=== PATIENT | female | born 1960 | race Caucasian/White ===

== ENCOUNTER 2016-11-15 17:54 | Emergency (ER) ==
[2016-11-15] MEDS ORDERED: DECADRON 4 MG/ML SDV IM STA (17:57)
[2016-11-15 18:03] VITALS: BP 139/82; TEMP 98.6; BMI 50.6
--- NOTE | 2016-11-15 18:03 | ED.PDOC ---
General ED Provider: Dr. TIFFANI NAVARRO Chief Complaint: Cough Stated Complaint: cough Time Seen by Physician: 18:00 Mode of Arrival: Walk-In Information Source: Patient Exam Limitations: No limitations [facility] T[facility] Documentation Reviewed and Agree: Yes Respiratory Complaint Exam - Respiratory Complaint/Exam Symptoms Are: Still present Timing: Intermittent Initial Severity: Moderate Current Severity: Moderate Location: Throat Character: Reports: Non-productive cough Aggravating: Reports: None Alleviating: Reports: None Associated Signs and Symptoms: Denies: Rapid breathing, Dyspnea, Fever, Chills, Chest pain, Pleuritic chest pain, Wheezing, Hemoptysis, Dizziness, Calf pain, Calf swelling, Edema, URI, Nasal congestion, Hoarseness, Sinus discomfort, Vomiting, Sore throat, Weight loss, Decreased oral intake, Increased thirst, Increased appetite, Increased urination Related History: Reports: Similar episode History of Healthcare-Acquired Pneumonia: No Related Surgical History: Reports: None Pulmonary Embolism Risk Factors: None Recent Stress Test: No Recent Echo/LV Function: No Current Antibiotic Use: No Current Asthma Medication Use: No Respiratory Distress: None Inadequate Respiratory Effort: No Dysphagia Present: No Stridor Present: No JVD Present: No Accessory Muscle Use: No Retractions: Not Present Diminished Breath Sounds: No Sinus Tenderness: None Grunting Respirations: No Kussmaul Respirations: No Differential Diagnoses: Pneumonia, Bronchitis Review of Systems - Review Of Systems Constitutional: Reports: No symptoms Eyes: Reports: No symptoms Ears, Nose, Mouth, Throat: Reports: No symptoms Respiratory: Reports: Cough Cardiac: Reports: No symptoms GI: Reports: No symptoms : Reports: No symptoms Musculoskeletal: Reports: No symptoms Skin: Reports: No symptoms Neurological: Reports: No symptoms Endocrine: Reports: No symptoms Hematologic/Lymphatic: Reports: No symptoms All Other Systems: Reviewed and Negative Past Medical History - Past Medical History Previously Healthy: No Endocrine: Reports: Hypothyroid Cardiovascular: Reports: Hypertension Respiratory: Reports: None Hematological: Reports: None Gastrointestinal: Reports: Diverticulitis Genitourinary: Reports: None Neuro/Psych: Reports: Depression Musculoskeletal: Reports: Arthritis Cancer: Reports: None Last Menstrual Period: hysterectomy - Surgical History General Surgical History: Reports: Unknown - Family History Family History: Reports: Unknown - Social History Smoking Status: Former smoker Hx Substance Use: No Alcohol Screening: None Physical Exam - Physical Exam Appearance: Well-appearing, No pain distress, Well-nourished Eyes: GABBI, EOMI, Conjunctiva clear ENT: Ears normal, Nose normal, Oropharynx normal Respiratory: Airway patent, Breath sounds clear, Breath sounds equal, Respirations nonlabored Cardiovascular: RRR, Pulses normal, No rub, No murmur GI/: Soft, Nontender, No masses, Bowel sounds normal, No Organomegaly Musculoskeletal: Normal strength, ROM intact, No edema, No calf tenderness Skin: Warm, Dry, Normal color Neurological: Sensation intact, Motor intact, Reflexes intact, Cranial nerves intact, Alert, Oriented Psychiatric: Affect appropriate, Mood appropriate Critical Care Note - Critical Care Note Total Time (mins): 0 Course - Course Orders, Labs, Meds: Orders Category Date Time Status Dexamethasone 4 mg/ml Inj [Decadron 4 mg/ml Sdv] MEDS 11/15/16 17:57 Stat 8 mg IM ONCE STA CHEST, 2 VIEWS PA & LAT Stat RADS 11/15/16 17:58 Ordered Medications Discontinued Medications Generic Name Dose Route Start Last Admin Trade Name Jasmin PRN Reason Stop Dose Admin Dexamethasone Sodium Phosphate 8 mg 11/15/16 17:57 Decadron 4 Mg/Ml Sdv IM 11/15/16 17:58 ONCE STA Vital Signs: Temp Pulse Resp BP Pulse Ox 11/15/16 17:55 98.6 F 58 L 20 139/82 94 L Departure - Departure Time of Disposition: 19:00 Disposition: HOME SELF-CARE Discharge Problem: Cough, Bronchitis Instructions: Acute Bronchitis (ED) Condition: Good Pt referred to PMD for follow-up: No Additional Instructions: Please call your Family Physician as soon as possible to schedule a follow-up appointment. Allergies/Adverse Reactions: Allergies amoxicillin [Amoxicillin] Adverse Reaction (Verified 11/15/16 18:03) meperidine HCl [From Demerol] Adverse Reaction (Verified 11/15/16 18:03) Home Medications: Ambulatory Orders Bupropion HCl [Wellbutrin] 75 mg PO BID 10/22/13 Hydrochlorothiazide 12.5 mg PO DAILY 10/22/13 Losartan Potassium 100 mg PO DAILY 10/22/13 Atenolol [Tenormin] 50 mg PO DAILY 04/23/14 Levothyroxine Sodium 175 mcg PO DAILY #30 tab-cap 01/25/16 Rosuvastatin Calcium [Crestor] 10 mg PO BEDTIME tab-cap 11/18/15 Glucosamine Sulfate 2Kcl [Glucosamine] 1,000 mg PO BEDTIME #30 tab-cap 01/14/16 Hydrocodone/Acetaminophen [Hydrocodon-Acetaminoph 7.5-325] 1 each PO QID PRN 09/09 Metronidazole [Flagyl] 500 mg PO TID #18 tablet 02/06/16 Moxifloxacin HCl [Avelox] 400 mg PO DAILY #6 tablet 02/06/16 Disposition Discussed With: Patient
--- NOTE | 2016-11-15 23:44 | DI ---
EXAM: Chest, two views, 11/15/2016 HISTORY: Cough COMPARISON: 08/28/2016 FINDINGS / IMPRESSION: Cardiomediastinal contours appear stable. Atherosclerotic vascular disease of the aorta No focal pulmonary consolidation, effusion or pneumothorax. No acute cardiopulmonary process.
== END 2016-11-15 19:15 | disposition home or self-care (01) ==
LOC: ED 17:54
DX: J20.9 Acute bronchitis, unspecified (principal); Z79.899 Other long term (current) drug therapy
CPT/HCPCS: 96372; 99283

== ENCOUNTER 2016-11-23 15:57 | Outpatient (CLI) | payer OTHER ==
--- NOTE | 2016-11-23 16:55 | CT ---
Exam: CT thorax without contrast. Clinical indication: Cough. TECHNIQUE: Axial unenhanced CT images of the thorax were obtained followed by coronal and sagittal reformats. Comparison is made to the prior study dated 10/22/2013. Findings: There is underlying centrilobular emphysema. There is a couple of tiny nodules within the anterolateral aspect of the right upper lobe which are unchanged from September 2013 and invariably benign. There are no worrisome pulmonary parenchymal le sions. There is no pleural abnormality. There are no enlarged axillary, hilar or mediastinal lymph nodes, by size criteria. There are coronary artery calcifications. There is been prior gastric surgery. There also appears to be an other partial right nephrectomy or a focal scarring within the right kidney. The remainder the visualized portions of the upper abdome n are unremarkable. The visualized bony structures are unremarkable. Impression: 1. Underlying centrilobular emphysema. 2. No worrisome pulmonary parenchymal lesions. 3. Coronary artery calcifications. 4. Focal area of scarring within the mid-right kidney which could be from prior surgery or from yudelka or insult such as infection.
== END 2016-11-23 15:58 | disposition home or self-care (01) ==
LOC: RAD 15:57
PROVIDERS: ATTEND General Practice
DX: R05 Cough (principal)

== ENCOUNTER 2017-01-11 14:51 | Outpatient (CLI) ==
--- NOTE | 2017-01-11 15:19 | DI ---
EXAM: Three views of the left foot HISTORY: Left foot pain. COMPARISON: None FINDINGS: There is no lytic or blastic lesion. There is no cortical irregularity or displaced fract ure. There is mild flattening of the plantar arch with degenerative change in the midfoot and osteo phyte formation. Soft tissues are unremarkable. IMPRESSION: 1. No displaced fracture or dislocation of the left foot. 2. Degenerative change in the midfoot with mild flattening of the plantar arch.
[2017-01-11 16:45] LABS: ERYTHROCYTE SEDIMENTATION RATE 45 mm/hr (0-20); ESR INTERNAL QC INTERNAL QC VALID
== END 2017-01-11 14:52 | disposition home or self-care (01) ==
LOC: RAD 14:51
PROVIDERS: ATTEND General Practice
DX: M79.672 Pain in left foot (principal)
CPT/HCPCS: 36415; 84550; 85651

== ENCOUNTER 2017-02-23 08:19 | Outpatient (CLI) ==
[2017-02-23 13:26] LABS: BILIRUBIN,URINE Negative (NEGATIVE); KETONES,URINE Negative (NEGATIVE); LEUKOCYTE ESTERASE ,URINE Negative (NEGATIVE); NITRITE,URINE Negative (NEGATIVE); PH,URINE 5.5 (5-9); PROTEIN,URINE Negative (NEGATIVE); URINE, BLOOD Negative (NEGATIVE)
[2017-02-23 13:27] LABS: BASOPHILS % (AUTO) 0.5 % (0.0-3.0); EOSINOPHILS # (AUTO) 0.1 K/ul (0.0-0.7); EOSINOPHILS % (AUTO) 1.4 % (0.0-7.0); HEMATOCRIT 36.4 % (37.0-47.0); HEMOGLOBIN 11.8 g/dl (12.0-16.0); IMMATURE GRANULOCYTE % (AUTO) 0.3 % (0.0-5.0); LYMPHOCYTES % (AUTO) 31.7 (10.0-50.0); MEAN CORPUSCULAR HEMOGLOBIN 29.6 pg (27.0-31.0); MEAN CORPUSCULAR HGB CONC 32.4 (31.8-35.4); MEAN CORPUSCULAR VOLUME 91.2 fl (81.0-99.0); MONOCYTES # (AUTO) 0.4 K/uL (0.4-2.0); NEUTROPHILS # (AUTO) 3.7 K/ul (2.0-6.9); NEUTROPHILS % (AUTO) 59.1; PLATELET COUNT 230 10^3/uL (140-440); RED BLOOD COUNT 3.99 10^6/ul (4.20-5.40); WHITE BLOOD COUNT 6.25 K/ul (4.6-10.2)
[2017-02-23 13:43] LABS: ADD URINE MICROSCOPIC NO
[2017-02-23 14:27] LABS: ALBUMIN 3.5 g/dL (3.4-5.0); ALBUMIN/GLOBULIN RATIO 1.17; ANION GAP 12.5; BILIRUBIN,TOTAL 0.4 mg/dL (0.00-1.20); BUN/CREATININE RATIO 18.75; CALCIUM 9.7 mg/dL (8.2-10.2); CHOL/HDL RATIO 4.7 (4.5-5.5); CREATININE 0.8 mg/dL (0.60-1.30); POTASSIUM 3.5 mmol/L (3.5-5.10); TOTAL PROTEIN 6.5 g/dL (6.4-8.2)
== END 2017-02-23 08:20 | disposition home or self-care (01) ==
LOC: LAB 08:19
PROVIDERS: ATTEND General Practice
DX: E03.9 Hypothyroidism, unspecified (principal); F32.9 Major depressive disorder, single episode, unspecified; I25.10 Atherosclerotic heart disease of native coronary artery without angina pectoris; K57.92 Diverticulitis of intestine, part unspecified, without perforation or abscess without bleeding; Z79.899 Other long term (current) drug therapy
CPT/HCPCS: 36415; 80053; 80061; 81001; 84443; 85025

== ENCOUNTER 2017-04-09 11:14 | Outpatient (CLI) | payer OTHER ==
[2017-04-09 11:51] LABS: ALBUMIN 3.8 g/dL (3.4-5.0); ALBUMIN/GLOBULIN RATIO 1.23; ANION GAP 11.8; BILIRUBIN,TOTAL 0.55 mg/dL (0.00-1.20); CALCIUM 9.8 mg/dL (8.2-10.2); CREATININE 0.84 mg/dL (0.60-1.30); POTASSIUM 3.8 mmol/L (3.5-5.10); TOTAL PROTEIN 6.9 g/dL (6.4-8.2)
== END 2017-04-09 11:15 | disposition home or self-care (01) ==
LOC: LAB 11:14
PROVIDERS: ATTEND Urology
DX: C64.1 Malignant neoplasm of right kidney, except renal pelvis (principal)
CPT/HCPCS: 36415; 80053

== ENCOUNTER 2017-05-14 15:10 | Outpatient (CLI) ==
[2017-05-14 15:50] LABS: HEMATOCRIT 35.2 % (37.0-47.0); HEMOGLOBIN 11.8 g/dl (12.0-16.0); MEAN CORPUSCULAR HEMOGLOBIN 30.2 pg (27.0-31.0); MEAN CORPUSCULAR HGB CONC 33.5 (31.8-35.4); RED BLOOD COUNT 3.91 10^6/ul (4.20-5.40); WHITE BLOOD COUNT 7.14 K/ul (4.6-10.2)
[2017-05-14 16:43] LABS: ALBUMIN 3.6 g/dL (3.4-5.0); ALBUMIN/GLOBULIN RATIO 1.24; ANION GAP 15.7; BILIRUBIN,TOTAL 0.36 mg/dL (0.00-1.20); BUN/CREATININE RATIO 14.85; CALCIUM 9.3 mg/dL (8.2-10.2); CREATININE 1.01 mg/dL (0.60-1.30); FOLATE 15.2 ng/mL (3.1-20.5); MAGNESIUM 1.9 mg/dL (1.7-2.2); PHOSPHORUS 3.5 mg/dL (2.5-4.9); POTASSIUM 3.7 mmol/L (3.5-5.10); TOTAL PROTEIN 6.5 g/dL (6.4-8.2)
[2017-05-18 07:09] LABS: ZINC 686 ug/dL (440-860)
== END 2017-05-14 15:11 | disposition home or self-care (01) ==
LOC: LAB 15:10
PROVIDERS: ATTEND Nurse Practitioner
DX: Z98.84 Bariatric surgery status (principal); E66.01 Morbid (severe) obesity due to excess calories; E55.9 Vitamin D deficiency, unspecified; I10 Essential (primary) hypertension; Z13.21 Encounter for screening for nutritional disorder
CPT/HCPCS: 36415; 80053; 82306; 82607; 82746; 83735; 84100; 84425; 84446; 84590; 84597; 84630; 85027

== ENCOUNTER 2017-05-15 12:29 | Outpatient (CLI) | END 2017-05-15 12:30 | disposition home or self-care (01) | LOC: LAB 12:29 | PROVIDERS: ATTEND Nurse Practitioner | DX: Z98.84 Bariatric surgery status (principal); E66.01 Morbid (severe) obesity due to excess calories; E55.9 Vitamin D deficiency, unspecified; I10 Essential (primary) hypertension; Z13.21 Encounter for screening for nutritional disorder | CPT/HCPCS: 36415; 84425 ==

== ENCOUNTER 2017-06-24 13:05 | Outpatient (CLI) ==
[2017-06-24 13:22] LABS: BASOPHILS % (AUTO) 0.3 % (0.0-3.0); EOSINOPHILS # (AUTO) 0.1 K/ul (0.0-0.7); EOSINOPHILS % (AUTO) 0.5 % (0.0-7.0); HEMATOCRIT 38.8 % (37.0-47.0); HEMOGLOBIN 12.9 g/dl (12.0-16.0); IMMATURE GRANULOCYTE % (AUTO) 0.6 % (0.0-5.0); LYMPHOCYTES # (AUTO) 2.4 K/uL (0.60-3.4); LYMPHOCYTES % (AUTO) 24.1 (10.0-50.0); MEAN CORPUSCULAR HEMOGLOBIN 30.1 pg (27.0-31.0); MEAN CORPUSCULAR HGB CONC 33.2 (31.8-35.4); MEAN CORPUSCULAR VOLUME 90.7 fl (81.0-99.0); MONOCYTES # (AUTO) 0.6 K/uL (0.4-2.0); MONOCYTES % (AUTO) 5.5 (0-10); PLATELET COUNT 273 10^3/uL (140-440); RED BLOOD COUNT 4.28 10^6/ul (4.20-5.40); WHITE BLOOD COUNT 10.09 K/ul (4.6-10.2)
[2017-06-24 13:27] LABS: BILIRUBIN,URINE Negative (NEGATIVE); KETONES,URINE Negative (NEGATIVE); LEUKOCYTE ESTERASE ,URINE Negative (NEGATIVE); NITRITE,URINE Negative (NEGATIVE); PH,URINE 6.5 (5-9); PROTEIN,URINE Negative (NEGATIVE); URINE, BLOOD Negative (NEGATIVE)
[2017-06-24 13:32] LABS: ADD URINE MICROSCOPIC NO
[2017-06-24 13:37] LABS: ALBUMIN 3.8 g/dL (3.4-5.0); ALBUMIN/GLOBULIN RATIO 1.19; ANION GAP 16.1; BILIRUBIN,TOTAL 0.46 mg/dL (0.00-1.20); BUN/CREATININE RATIO 22.5; CALCIUM 10.2 mg/dL (8.2-10.2); CHOL/HDL RATIO 3.9 (4.5-5.5); CREATININE 0.8 mg/dL (0.60-1.30); POTASSIUM 4.1 mmol/L (3.5-5.10)
== END 2017-06-24 13:06 | disposition home or self-care (01) ==
LOC: LAB 13:05
PROVIDERS: ATTEND General Practice
DX: E03.9 Hypothyroidism, unspecified (principal); I25.10 Atherosclerotic heart disease of native coronary artery without angina pectoris; Z79.899 Other long term (current) drug therapy; Z98.890 Other specified postprocedural states
CPT/HCPCS: 36415; 80053; 80061; 81001; 85025

== ENCOUNTER 2017-07-13 07:41 | Outpatient (CLI) | payer OTHER ==
[2017-07-13 08:10] LABS: BASOPHILS % (AUTO) 0.3 % (0.0-3.0); EOSINOPHILS # (AUTO) 0.2 K/ul (0.0-0.7); EOSINOPHILS % (AUTO) 2.1 % (0.0-7.0); HEMATOCRIT 36.3 % (37.0-47.0); HEMOGLOBIN 12.1 g/dl (12.0-16.0); IMMATURE GRANULOCYTE % (AUTO) 0.3 % (0.0-5.0); LYMPHOCYTES # (AUTO) 2.1 K/uL (0.60-3.4); LYMPHOCYTES % (AUTO) 28.5 (10.0-50.0); MEAN CORPUSCULAR HGB CONC 33.3 (31.8-35.4); MEAN CORPUSCULAR VOLUME 90.1 fl (81.0-99.0); MONOCYTES # (AUTO) 0.6 K/uL (0.4-2.0); MONOCYTES % (AUTO) 7.6 (0-10); NEUTROPHILS # (AUTO) 4.5 K/ul (2.0-6.9); NEUTROPHILS % (AUTO) 61.2; PLATELET COUNT 176 10^3/uL (140-440); RED BLOOD COUNT 4.03 10^6/ul (4.20-5.40); WHITE BLOOD COUNT 7.27 K/ul (4.6-10.2)
[2017-07-13 08:31] LABS: ALBUMIN 3.4 g/dL (3.4-5.0); ALBUMIN/GLOBULIN RATIO 1.1; BILIRUBIN,TOTAL 0.45 mg/dL (0.00-1.20); BUN/CREATININE RATIO 21.95; CREATININE 0.82 mg/dL (0.60-1.30); TOTAL PROTEIN 6.5 g/dL (6.4-8.2)
--- NOTE | 2017-07-13 08:52 | DI ---
EXAM: PA and lateral views of the chest HISTORY: Right kidney neoplasm COMPARISON: CT chest 11/23/2016 and Chest x-ray 11/15/2016 with multiple priors FINDINGS: The cardiomediastinal silhouette is normal. There is no pneumothorax or pleural effusion. There is no consolidation, nodule or mass. The osseous structures demonstrate degenerative disease of the spine. IMPRESSION: No acute cardiopulmonary process
--- NOTE | 2017-07-13 09:40 | CT ---
Exam: CT abdomen with and without contrast and CT pelvis with contrast. HISTORY: Follow-up kidney cancer. Partial right nephrectomy June 2014. Prior gastric sleeve, oophorectomy and appendectomy. Procedures: Contiguous axial images were obtained in the abdomen and pelvis prior to intravenous adm inistration of contrast. Postcontrast images were obtained through the abdomen during arterial phase and through the abdomen and pelvis during the portal venous phase and again following a 4-minute del ay. Sagittal and coronal reformatted images were also created and reviewed. Comparison: 08/28/2016. Findings: The lung bases are clear bilaterally. There is no enhancing intrahepatic mass or biliary d uctal dilatation. The liver is enlarged, measuring 20 cm x 17 cm. The gallbladder is not dilated, w ithout radiodense gallstone. The spleen, pancreas and adrenal glands appear within normal limits. T he kidneys enhance symmetrically. There is no enhancing renal mass or hydronephrosis. There is rede monstration of postsurgical change of the right kidney without residual or recurrent neoplasm identif ied. In the upper pole of the left kidney there is redemonstration of a 1.5 cm fluid density probabl e cyst. Lower pole of the right kidney there is redemonstration of a 2.4 cm fluid density probable c yst. Postsurgical changes are noted the stomach. The second segment duodenal diverticulum is again noted. Otherwise, the unopacified small and large bowel appear stable. The appendix is not visualiz ed. There are multiple diverticula involving the distal colon, without adjacent inflammatory change. The urinary bladder is nondistended. There is no free air, free fluid or lymphadenopathy identified in the abdomen or pelvis. Atherosclerotic calcifications are noted, without aortic aneurysm. The p ortal vein is patent. Bone windows demonstrate degenerative findings in the hips and spine. There are chronic-appearing pa rs defects at L4 and there is redemonstration of 9 mm anterolisthesis of L4 on L5. Changes of prior L4-L5 laminectomy are again noted. Impressions: Stable postsurgical changes in the right kidney without evidence of residual or recurre nt neoplasm. Stable bilateral renal cysts. Stable subcentimeter retroperitoneal lymph nodes without lymphadenopathy. Diverticulosis without diverticulitis. Stable 8 mm anterolisthesis of L4 on L5 with findings of prior L4 and L5 laminectomy.
== END 2017-07-13 07:42 | disposition home or self-care (01) ==
LOC: RAD 07:41
PROVIDERS: ATTEND Urology
DX: C64.1 Malignant neoplasm of right kidney, except renal pelvis (principal); Z90.5 Acquired absence of kidney
CPT/HCPCS: 36415; 80053; 85025

== ENCOUNTER 2017-07-16 15:57 | Outpatient (CLI) ==
[2017-07-16 16:37] LABS: CHOL/HDL RATIO 5.2 (4.5-5.5)
== END 2017-07-16 15:58 | disposition home or self-care (01) ==
LOC: LAB 15:57
PROVIDERS: ATTEND General Practice
DX: I25.10 Atherosclerotic heart disease of native coronary artery without angina pectoris (principal)
CPT/HCPCS: 36415; 80061

== ENCOUNTER 2018-02-18 16:19 | Outpatient (CLI) | payer OTHER | END 2018-02-18 16:20 | disposition home or self-care (01) | LOC: LAB 16:19 | PROVIDERS: ATTEND General Practice | DX: M54.9 Dorsalgia, unspecified (principal) | CPT/HCPCS: 81001 ==

== ENCOUNTER 2018-04-22 09:53 | Outpatient (CLI) | END 2018-04-22 09:54 | disposition home or self-care (01) | LOC: FCC-LAB 09:53 | PROVIDERS: ATTEND General Practice | DX: E78.5 Hyperlipidemia, unspecified (principal); I10 Essential (primary) hypertension; Z79.899 Other long term (current) drug therapy | CPT/HCPCS: 36415; 80053; 80061; 81001; 85025 ==

== ENCOUNTER 2018-07-07 12:51 | Outpatient (CLI) | payer OTHER | END 2018-07-07 12:52 | disposition home or self-care (01) | LOC: FCC-LAB 12:51 | PROVIDERS: ATTEND General Practice | DX: I25.10 Atherosclerotic heart disease of native coronary artery without angina pectoris (principal); E03.9 Hypothyroidism, unspecified | CPT/HCPCS: 36415; 80053; 80061; 81001; 85025 ==

== ENCOUNTER 2018-07-08 15:51 | Outpatient (CLI) | payer OTHER | END 2018-07-08 15:52 | disposition home or self-care (01) | LOC: FCC-LAB 15:51 | PROVIDERS: ATTEND General Practice | DX: I25.10 Atherosclerotic heart disease of native coronary artery without angina pectoris (principal) | CPT/HCPCS: 36415; 86038; 86140 ==

== ENCOUNTER 2018-07-09 12:59 | Outpatient (CLI) ==
--- NOTE | 2018-07-10 12:52 | DI ---
EXAM: PA and lateral views the chest HISTORY: Erythematous condition COMPARISON: 07/13/2017 FINDINGS: No focal consolidation, pleural effusion or pneumothorax is identified. The cardiomediastinal silhouette is within normal limits. There is calcified atherosclerotic plaque of the aorta. There is moderate multilevel thoracic degenerative disc disease. IMPRESSION: No acute cardiopulmonary findings.
== END 2018-07-09 13:00 | disposition home or self-care (01) ==
LOC: RAD 12:59
PROVIDERS: ATTEND General Practice
DX: L53.9 Erythematous condition, unspecified (principal); I25.10 Atherosclerotic heart disease of native coronary artery without angina pectoris
CPT/HCPCS: 36415; 85651

== ENCOUNTER 2018-12-05 15:17 | Outpatient (CLI) | payer OTHER ==
--- NOTE | 2018-12-05 16:01 | CT ---
EXAM: CT ABDOMEN AND PELVIS HISTORY: Left lower quadrant pain TECHNIQUE: CT abdomen and pelvis without intravenous contrast. Images were reconstructed using 5 mm section thickness. Reformations were prepared. COMPARISON: 07/13/2017 FINDINGS: Diagnostic limitations may exist without including contrast enhanced images. No focal hepatic or spl enic lesions. Gallbladder is grossly unremarkable. Pancreas and adrenal glands appear normal. Post op changes of the right kidney with an adjacent 2.1 cm renal cortical cystic mass similar to that pre viously seen. There is a small cystic mass of the upper left renal cortex which is stable. These pr obably represent cysts. No hydronephrosis is seen. The ureters are clear. Moderate atherosclerotic disease. Postop changes of the stomach are noted. Normal bowel gas pattern. There is moderate distal colon d iverticulosis. There appears to be a small uterus present. Urinary bladder is unremarkable. There is no ascites. There is a small right-sided periumbilical hernia with a neck of 19 mm, stable. The bones reveal sev ere degenerative disc and facet disease of the lower spine with anterior spondylolisthesis of L4 on L 5 and estimated 9 mm. These degenerative changes have advanced since previous exam. Bones are signi ficantly demineralized. Lung bases are clear. No pneumoperitoneum is seen. IMPRESSION: 1. Moderate distal colon diverticulosis without current evidence of diverticulitis. 2. Relatively severe demineralization of the bones. There is severe degenerative disc and facet dis ease of the lower spine with listhesis. If there are symptoms referable to the lumbar spine, conside r MRI. 3. Postop changes of the right kidney and stomach. 4. Stable small fatty right-sided periumbilical hernia. 5. Atherosclerosis.
== END 2018-12-05 15:18 | disposition home or self-care (01) ==
LOC: RAD 15:17
PROVIDERS: ATTEND General Practice
DX: R10.32 Left lower quadrant pain (principal)
CPT/HCPCS: 81001

== ENCOUNTER 2019-01-31 09:29 | Day surgery (SDC) ==
[2019-01-31 10:18] VITALS: TEMP 97.8
[2019-01-31] MEDS ORDERED: LIDOCAINE 1% 20 ML MDV ID STA (10:18)
[2019-01-31] MEDS ORDERED: DIPRIVAN 20 ML VIAL IVP ONE (12:00)
[2019-01-31] MEDS ORDERED: VERSED ONE (12:00)
--- NOTE | 2019-02-01 07:50 | OP ---
INDICATIONS FOR PROCEDURE: 58-year-old female presents for colonoscopy exam. She is scheduled for a screening exam with a family history of colon cancer involving her brother at age 62. The patient did have an episode of diverticulitis this past Winter but that has resolved. MEDICATIONS: SEE ANESTHESIA NOTES. PROCEDURE: COLONOSCOPY. REPORT: The risks, benefits, alternatives and limitations were discussed in detail with the patient. Informed consent was obtained. After adequate sedation was achieved, a digital rectal exam revealed good tone, no masses. The colonoscope was introduced into the rectum and advanced under direct visual guidance to the cecum. The cecum was identified by the appendiceal orifice and IC valve. I then slowly withdrew the scope in a circumferential manner examining the mucosa quite carefully. I looked on the proximal and distal side of folds and flexures as best as possible. I was able to retroflex the scope in the right colon and left colon to increase visualization. The colonic mucosa was unremarkable its entire length other than diverticulosis. Diverticulosis was scattered throughout the entire colon with a small amount in the right colon and moderate amount of diverticulosis in the sigmoid area. No other abnormalities were noted including on retroflex view of the anal canal. The prep was good. The withdrawal time was 10 minutes and 0 seconds. The patient tolerated the procedure well with stable vital signs and pulse oximetry throughout. IMPRESSION: 1. STONE DIVERTICULOSIS RECOMMENDATIONS: 1. High fiber diet. 2. Office visit as needed. 3. Colonoscopy examination again in 5 years, sooner if there are any signs or symptoms to indicate otherwise. CC: DR. MOUNIKA WRIGHT
[2019-02-02 14:47] VITALS: BP 123/67
== END 2019-01-31 13:40 | disposition home or self-care (01) ==
LOC: SURG 09:29
PROVIDERS: ATTEND Internal Medicine Gastroenterology
DX: Z12.11 Encounter for screening for malignant neoplasm of colon (principal); Z80.0 Family history of malignant neoplasm of digestive organs
CPT/HCPCS: 00812; G0121

== ENCOUNTER 2019-02-26 11:09 | Emergency (ER) | payer OTHER ==
[2019-02-26 11:15] VITALS: BP 139/75; TEMP 96.8; BMI 46.8
--- NOTE | 2019-02-26 12:15 | ED.PDOC ---
General ED Provider: Dr. VITA REYES Chief Complaint: Back Pain Stated Complaint: Rt Sided Low back pain. History Rt sided Renal Cell Carcinoma and Neprhrectomy. With onset of pain patient worried about poss recurrence of renal tumor Time Seen by Physician: 11:40 Mode of Arrival: Walk-In Information Source: Patient, Family [facility] Documentation Reviewed and Agree: Yes Does patient meet sepsis criteria?: No System Inflammatory Response Syndrome: Not Applicable Sepsis Protocol: For patient's 13 years and over: Temp is 96.8 and below OR 101 and greater Pulse >90 BPM Resp >20/minute Acutely Altered Mental Status Are patient's symptoms suggestive of a new infection, such as: -Pneumonia -Skin, Soft Tissue -Endocarditis -UTI -Bone, Joint Infection -Implantable Device -Acute Abdominal Infection -Wound Infection -Meningitis -Blood Stream Catheter Infection -Unknown Musculoskeletal Complaint Exam - Back Pain Complaint/Exam Mechanism of Injury: Reports: No known trauma Onset/Duration: this am Symptoms Are: Still present Timing: Intermittent Episodes Lasting: Minutes Initial Severity: Moderate Current Severity: Mild Location: Reports: Discrete Character: Reports: Dull, Aching Aggravating: Reports: Movements Alleviating: Reports: Rest Associated Signs and Symptoms: Reports: Tingling Related History: Reports: Similar episode TAD Risk Factors: Reports: None AAA Risk Factors: Reports: None Cauda Equina Risk Factors: Reports: None Epidural Abcess Risk Factors: Reports: None Related Surgical History: Reports: None Focal Tenderness: Yes (lt SI region ) Paraspinal Muscle Tenderness: No Paraspinal Muscle Spasm: No Scoliosis: No Lordosis: No Kyphosis: No SLR Test: Right Negative, Left Negative Hip Motion Testing Pain: Right Negative, Left Negative Focal Weakness: Present: None Focal Sensory Loss: Present: None Gait: Present: Normal Differential Diagnoses: Neoplasm, Strain Review of Systems - Review Of Systems Constitutional: Reports: No symptoms Eyes: Reports: No symptoms Ears, Nose, Mouth, Throat: Reports: No symptoms Respiratory: Reports: No symptoms Cardiac: Reports: No symptoms GI: Reports: No symptoms : Reports: No symptoms Musculoskeletal: Reports: Back pain Skin: Reports: No symptoms Neurological: Reports: No symptoms Endocrine: Reports: No symptoms Hematologic/Lymphatic: Reports: No symptoms All Other Systems: Reviewed and Negative Past Medical History - Past Medical History Previously Healthy: No Endocrine: Reports: Hypothyroid Cardiovascular: Reports: Hypertension Respiratory: Reports: None Hematological: Reports: None Gastrointestinal: Reports: Diverticulitis Genitourinary: Reports: None Neuro/Psych: Reports: Depression Musculoskeletal: Reports: Arthritis Cancer: Reports: None Last Menstrual Period: n/a - Surgical History General Surgical History: Reports: Unknown - Family History Family History: Reports: Unknown - Social History Smoking Status: Former smoker Hx Substance Use: No Alcohol Screening: None Physical Exam - Physical Exam Appearance: Well-appearing, No pain distress, Well-nourished, Obese Ill-appearing: Mild Pain Distress: Mild Eyes: GABBI, EOMI, Conjunctiva clear ENT: Ears normal, Nose normal, Oropharynx normal Respiratory: Airway patent, Breath sounds clear, Breath sounds equal, Respirations nonlabored Cardiovascular: RRR, Pulses normal, No rub, No murmur GI/: Soft, Nontender (no flank tenderness on rt), No masses, Bowel sounds normal, No Organomegaly Musculoskeletal: Normal strength, ROM intact, No edema, No calf tenderness Skin: Warm, Dry, Normal color Neurological: Sensation intact, Motor intact, Reflexes intact, Cranial nerves intact, Alert, Oriented Psychiatric: Affect appropriate, Mood appropriate Critical Care Note - Critical Care Note Total Time (mins): 0 Course - Course Hematology/Chemistry: 02/26/19 12:28 02/26/19 12:28 Orders, Labs, Meds: Lab Review 02/26/19 02/26/19 02/26/19 11:30 12:28 12:28 WBC 8.32 RBC 3.79 L Hgb 11.2 L Hct 35.1 L MCV 92.6 MCH 29.6 MCHC 31.9 RDW Coeff of [place] 13.2 Plt Count 219 Immature Gran % (Auto) 0.5 Neut % (Auto) 68.1 Lymph % (Auto) 22.8 [place]cd[place] % (Auto) 6.9 Eos % (Auto) 1.3 Baso % (Auto) 0.4 Immature Gran # (Auto) 0.0 Neut # (Auto) 5.7 Lymph # (Auto) 1.9 [place]cd[place] # (Auto) 0.6 Eos # (Auto) 0.1 Baso # (Auto) 0.0 Sodium 137.6 Potassium 4.22 Chloride 99.9 Carbon Dioxide 31.4 H Anion Gap 10.52 BUN 21.2 H Creatinine 0.98 Estimated GFR (MDRD) 58.00 BUN/Creatinine Ratio 21.63 Glucose 96.6 Calcium 9.88 Total Bilirubin 0.43 AST 22.9 ALT 17.3 Alkaline Phosphatase 78.7 Total Protein 6.77 Albumin 4.40 Globulin 2.37 Albumin/Globulin Ratio 1.85 Urine Color Yellow Urine Clarity Clear Urine pH 6.5 Ur Specific [place] 1.015 Urine Protein Negative Urine Glucose (UA) Negative Urine Ketones Negative Urine Blood Negative Urine Nitrite Negative Urine Bilirubin Negative Urine Urobilinogen 0.2 Ur Leukocyte Esterase Negative Orders Category Date Time Status CBC W/ AUTO DIFF Stat LAB 02/26/19 12:28 Completed CMP [COMPREHENSIVE METABOLIC PANEL] Stat LAB 02/26/19 12:28 Completed URINALYSIS C & S IF INDICATED Stat LAB 02/26/19 11:[address] ABDOMEN/PELVIS WO CONTRAST Stat RADS 02/26/19 12:[address] LUMBAR SPINE W/O CONTRAST Stat RADS 02/26/19 12:13 Completed Vital Signs: Temp Pulse Resp BP Pulse Ox 02/26/19 11:10 96.8 F L 50 L 20 139/75 96 Departure - Departure Time of Disposition: 14:00 Disposition: HOME SELF-CARE Discharge Problem: Lumbar degenerative disc disease, Chronic renal disease, Lumbar strain Instructions: Low Back Strain (ED), Degenerative Disc Disease (ED), Lower Back Exercises (ED) Condition: Good Pt referred to PMD for follow-up: Yes (PCP) IPMP verified?: No Additional Instructions: Avoid sudden position changes, heavy lifting, prolonged standing and bending Take norco for pain as needed. See PCP as needed Allergies/Adverse Reactions: Allergies amoxicillin [Amoxicillin] Adverse Reaction (Mild, Verified 02/26/19 11:15) meperidine HCl [From Demerol] Adverse Reaction (Mild, Verified 02/26/19 11:15) INCREASED PAIN LEVEL Home Medications: Ambulatory Orders Hydrochlorothiazide 12.5 mg PO DAILY 10/22/13 Hydrocodone/Acetaminophen [Hydrocodone-Acetamin 7.5-325] 1 each PO QID PRN 02/02 Calcium Carbonate [Calcium] 500 mg PO DAILY #2 01/11/17 Pantoprazole Sodium 40 mg PO DAILY 02/26/19 Disposition Discussed With: Patient, Family
--- NOTE | 2019-02-26 13:39 | CT ---
EXAM: Noncontrast CT of the abdomen and pelvis. HISTORY: Right back pain. Prior right nephrectomy for renal cell carcinoma. COMPARISON: 12/05/2018 TECHNIQUE: Contiguous axial images at 3 mm intervals were obtained from lung bases through the pelvi s. No contrast was given. Coronal reformats were reviewed. FINDINGS: The study is limited without contrast. CHEST: LUNG BASES: The lung bases show no lobar consolidation or effusion. HEART: The heart size is within normal limits.Coronary calcifications are seen. ABDOMEN: Evaluation of the soft tissue organs is limited without contrast. LIVER: Noncontrast images of the liver show no solid mass lesion or intrahepatic ductal dilatation. BILIARY: The gallbladder is normally distended. No gallstones are noted. No pericholecystic fluid or inflammation. The common bile duct is normal. SPLEEN: The spleen is unremarkable. PANCREAS: The pancreas shows no mass lesion or peripancreatic inflammation. Impinges atrophic. ADRENAL GLANDS: The adrenal glands are normal. RENAL: There are postoperative changes of a partial right nephrectomy in the right mid inferior kid [place]. Calcifications are seen. The appearance is unchanged in comparison to the prior study. There are bilateral low-density masses which has appearance of cyst. Evaluation is limited without contras t. A similar appearance as seen on prior studies. AORTA: Moderate aortic calcifications are seen. No aneurysm is identified. RETROPERITONEUM: There is no retroperitoneal or mesenteric adenopathy. BOWEL: The bowel is unopacified. There is an air-fluid level in the region of the second portion o f duodenum which may be a diverticulum. A similar appearance was seen on the prior study. There is no obstruction or inflammatory change. There is no free fluid or free air. No significant inflamma tory changes are seen. Diffuse diverticulosis is seen without definite evidence of acute diverticuli tis. The appendix is not identified. There is no fluid or inflammation in the right lower quadrant. PELVIS: BLADDER: The bladder is not well distended.. GENITOURINARY STRUCTURES: Unremarkable. OSSEOUS STRUCTURES: There are postoperative changes at L4-5. Anterolisthesis of L4 on L5 is seen. No acute abnormalities IMPRESSION 1. Limited study without contrast.No acute intra-abdominal abnormality. No obstructing ureteral sto keri. 2. The appendix is not identified. There is no fluid or inflammation in the right lower quadrant. 3. Diverticulosis without evidence of acute diverticulitis. 4. Postoperative changes in the right kidney. No significant change. Bilateral renal cyst. 5. Postoperative changes in the lower lumbar spine. No definite lytic or blastic lesions.
--- NOTE | 2019-02-26 13:43 | CT ---
EXAM: CT lumbar spine without contrast. HISTORY: Low back pain COMPARISON: CT 05/23/2015, MRI 06/04/2014 TECHNIQUE: Serial axial images of the spine were obtained from the lower thoracic spine through the pelvis without contrast. Axial scans acquired at 3 mm slice thicknesses. Coronal and sagittal seque nces completed FINDINGS: Sagittal sequence shows changes of prior L4 and L5 laminectomy. There is 8 mm anterolisthesis L4 on L5 There is severe narrowing of the L4-L5 disc space and minimal narrowing of the L5 S1 disc space. Vertebral body heights appear stable. There are degenerative changes facet joints L3-L4 to the L5 S1 level. Coronal sequence shows mild 6 degrees curvature convexity L1-L2 level: No disc protrusion or foraminal stenosis L2-L3: No disc protrusion or foraminal stenosis L3-L4: Diffuse discogenic bulge with degenerative change facet joints. There is moderate central spi nal canal stenosis. Minimal right foraminal stenosis L4-L5: Post laminectomy changes. Diffuse discogenic bulge. Degenerative change facet joints with mo derate left foraminal stenosis. Evaluation neural foramen limited due to axial sequence is non paral lel to the disc space. Moderate central spinal canal stenosis L5-S1: Osteophyte disc complex extends posteriorly. Post laminectomy changes degenerative change fac et joints with minimal right foraminal stenosis. Impression There are changes of prior L4 and L5 laminectomy Interval change from previous CT with increasing anterolisthesis of L4 on L5, now 8 mm Moderate L3-L4 and moderate L4-L5 spinal stenosis increased from previous study. Facet degenerative changes with minimal right L3-L4, moderate left L4-L5, minimal right L5-S1 foramin al stenosis
== END 2019-02-26 14:27 | disposition home or self-care (01) ==
LOC: ED 11:09
DX: S39.012A Strain of muscle, fascia and tendon of lower back, initial encounter (principal); M51.36 Other intervertebral disc degeneration, lumbar region; N18.9 Chronic kidney disease, unspecified; Z85.520 Personal history of malignant carcinoid tumor of kidney; Z90.5 Acquired absence of kidney; I10 Essential (primary) hypertension; E03.9 Hypothyroidism, unspecified; Z87.19 Personal history of other diseases of the digestive system
CPT/HCPCS: 36415; 80053; 81001; 85025; 99283

== ENCOUNTER 2019-03-22 08:21 | Outpatient (CLI) | END 2019-03-22 08:22 | disposition home or self-care (01) | LOC: RHC-LAB 08:21 | PROVIDERS: ATTEND General Practice | DX: E03.9 Hypothyroidism, unspecified (principal); E78.5 Hyperlipidemia, unspecified; Z79.899 Other long term (current) drug therapy | CPT/HCPCS: 36415; 80053; 80061; 81001; 84443; 85025 ==

== ENCOUNTER 2019-04-04 11:33 | Outpatient (CLI) ==
--- NOTE | 2019-04-04 12:24 | CT ---
EXAM: CT LUMBAR SPINE HISTORY: Lower back pain TECHNIQUE: CT lumbar spine without contrast. 3-mm axial sections. Coronal and sagittal reformation s. COMPARISON: 02/26/2019 FINDINGS: Bone density appears decreased. No acute fracture is seen. Vertebral body heights are grossly maint ained. There is severe degenerative disc disease at L4/L5 with anterior spondylolisthesis of L4 on L 5 by estimated 9.1 mm. Decompressive laminectomy is noted at this level. The pedicles appear congen itally short which along with diffuse broad-based disc bulging leads to multilevel central canal sten osis most apparent at L2/L3 were these entities as well as facet arthropathy and ligamentum flavum hy pertrophy lead to severe central canal stenosis. There is also severe central canal stenosis at L3/L 4. At L1/L2, a focal disc osteophyte complex in the right lateral recess leads to at least mild or r egional central stenosis and mild right neural foraminal narrowing. Incidental findings include athe rosclerotic disease and distal colon diverticulosis. IMPRESSION: 1. No noticeable change since previous exam. There is diffuse degenerative change most apparent at L2/L3, L3/L4 and L4/L5. Postop changes again noted. No acute fracture.
== END 2019-04-04 11:34 | disposition home or self-care (01) ==
LOC: RAD 11:33
PROVIDERS: ATTEND General Practice
DX: E03.9 Hypothyroidism, unspecified (principal); R73.9 Hyperglycemia, unspecified; M54.5 Low back pain; R25.2 Cramp and spasm; F32.9 Major depressive disorder, single episode, unspecified; E78.5 Hyperlipidemia, unspecified
CPT/HCPCS: 36415; 83036; 83525; 83735; 84443

== ENCOUNTER 2019-04-05 08:34 | Outpatient (CLI) | END 2019-04-05 08:35 | disposition home or self-care (01) | LOC: RHC-LAB 08:34 | PROVIDERS: ATTEND General Practice | DX: R25.2 Cramp and spasm (principal); F32.9 Major depressive disorder, single episode, unspecified; E03.9 Hypothyroidism, unspecified; E78.5 Hyperlipidemia, unspecified | CPT/HCPCS: 36415; 83525 ==

== ENCOUNTER 2019-04-17 12:53 | Outpatient (CLI) ==
--- NOTE | 2019-04-18 08:56 | DI ---
EXAM: Right ankle. Three-view HISTORY: Pain in right foot COMPARISON: None FINDINGS: No fracture or dislocation. Mild osteophyte formation about the ankle. Ankle mortise sym metric. Mild osteoarthritis midfoot with dorsal spurring. Tiny plantar and posterior calcaneal spur s. Subcutaneous edema suggested. IMPERSSION: 1. No fracture or dislocation. 2. Mild osteoarthritis about the ankle and midfoot 3. Tiny calcaneal spurring. 4. Subcutaneous edema suggested.
--- NOTE | 2019-04-18 08:57 | DI ---
EXAM: Right foot three view HISTORY: Right foot pain COMPARISON: None FINDINGS: No fracture or dislocation. Mild scattered osteophytic change about the forefoot. Mild o steophytic change about the midfoot. Tiny plantar and posterior calcaneal spurs. IMPERSSION: 1. No fracture or dislocation. 2. Mild osteoarthritis. 3. Minimal calcaneal spurring.
== END 2019-04-17 12:54 | disposition home or self-care (01) ==
LOC: RAD 12:53
PROVIDERS: ATTEND General Practice
DX: M79.671 Pain in right foot (principal); M25.50 Pain in unspecified joint; R60.9 Edema, unspecified; M96.1 Postlaminectomy syndrome, not elsewhere classified; G62.9 Polyneuropathy, unspecified; M54.5 Low back pain; R52 Pain, unspecified; E78.5 Hyperlipidemia, unspecified; W10.8XXA Fall (on) (from) other stairs and steps, initial encounter
CPT/HCPCS: 36415; 86140

== ENCOUNTER 2019-04-19 09:29 | Outpatient (CLI) | payer OTHER | END 2019-04-19 09:30 | disposition home or self-care (01) | LOC: RHC-LAB 09:29 | PROVIDERS: ATTEND General Practice | DX: M79.672 Pain in left foot (principal); M10.072 Idiopathic gout, left ankle and foot | CPT/HCPCS: 36415; 85651 ==